=== PATIENT | male | born 1975 | race Caucasian/White ===

== ENCOUNTER 2022-08-07 10:46 | Inpatient (IN) | payer OTHER ==
[2022-08-07] MEDS ORDERED: ACETAMINOPHEN 500 MG TABLET (FP) PO ONE (11:32)
[2022-08-07 13:17] LABS: BASO % 0.1 % (0-2.0); EPI CELLS 2 /uL (0-25.1); HEMATOCRIT 47.6 % (35.4-49); HEMOGLOBIN 16.2 GM/dL (11.7-16.9); HYALINE CASTS 0 /uL (0-3.1); LYMPH % 6.7 % (8-40); MCH 30.8 pg (25.7-33.7); MEAN CELL VOLUME 90.8 fl (80-96); MEAN PLT VOLUME 8.6 fl (7.5-11.1); MONO % 6.2 % (3.8-10.2); PH,URINE 5.5 (5.0-8.0); PLATELET COUNT 216 10^3/uL (134-434); RBC 5.24 M/mm3 (4.00-5.60); RDW 13.4 % (11.9-15.9); URINE APPEARANCE TURBID; URINE BACTERIA 114 /uL (0-1359); URINE BILIRUBIN NEGATIVE (NEGATIVE); URINE COLOR YELLOW; URINE GLUCOSE (UA) NEGATIVE (NEGATIVE); URINE KETONE NEGATIVE (NEGATIVE); URINE LEUK ESTERASE 3+ (NEGATIVE); URINE NITRITE NEGATIVE (NEGATIVE); URINE PROTEIN 2+ (NEGATIVE); URINE RBC 1324 /uL (0-23.9); URINE UROBILINOGEN 0.2 mg/dL (0.2-1.0); URINE WBC 6007 /uL (0-25.8); WHITE BLOOD COUNT 13.6 K/mm3 (4.0-10.0)
[2022-08-07 13:24] LABS: INR 1.14 (0.83-1.09); PROTHROMBIN TIME (PATIENT) 13.1 SEC (9.7-13.0)
[2022-08-07 13:26] LABS: ACTIVATED PTT 30.2 SECONDS (25.2-36.5)
[2022-08-07 13:36] LABS: BLOOD UREA NITROGEN 11.5 mg/dL (7-18); CALCIUM 8.9 mg/dL (8.5-10.1)
[2022-08-07 13:37] LABS: ALBUMIN 3.9 g/dl (3.4-5.0)
[2022-08-07 13:40] LABS: CREATININE 0.9 mg/dL (0.55-1.3)
[2022-08-07 13:41] LABS: TOT PROT 8.1 g/dl (6.4-8.2)
[2022-08-07] MEDS ORDERED: SODIUM CHLORIDE 0.9% 1000 ML INFUS.BAG IV ONE (17:03)
[2022-08-07] MEDS ORDERED: KETOROLAC TROMETHAMINE 15 MG/ML VIAL IVPUSH ONE (17:03)
[2022-08-07] MEDS ORDERED: SULFAMETHOXAZOLE/TRIMETHOPRIM 800MG/160MG D.S. TABLET PO ONE (17:04)
[2022-08-07] MEDS ORDERED: KETOROLAC TROMETHAMINE 15 MG/ML VIAL ONE (17:32)
[2022-08-07] MEDS ORDERED: SULFAMETHOXAZOLE/TRIMETHOPRIM 800MG/160MG D.S. TABLET ONE (17:32)
[2022-08-07] MEDS ORDERED: ACETAMINOPHEN 1000 MG/100 ML BAG IVPB ONE (19:09)
[2022-08-07] MEDS ORDERED: SODIUM CHLORIDE 0.9% 500 ML INFUS.BAG IV ONE (19:10)
[2022-08-07] MEDS ORDERED: CEFTRIAXONE 1 GM in DEXTROSE 5%-WATER - 100 ML IVPB ONE (19:30)
[2022-08-07] MEDS ORDERED: ACETAMINOPHEN INJECTION 100 ML IVPB ONE (19:32)
[2022-08-07] MEDS ORDERED: ACETAMINOPHEN 325 MG TABLET (FP) PO PRN (21:03)
[2022-08-07] MEDS ORDERED: SODIUM CHLORIDE 1,000 ML IV STA (21:50)
[2022-08-07] MEDS ORDERED: CEFTRIAXONE 1 GM/50 ML BAG ONE (23:21)
[2022-08-08 00:26] LABS: HIV INTERPRETATION NEGATIVE (NEGATIVE)
[2022-08-08] MEDS ORDERED: ACETAMINOPHEN 325 MG TABLET (FP) ONE (02:42)
[2022-08-08 09:34] LABS: BASO % 0.1 % (0-2.0); EOS % 0.1 % (0-4.5); HEMATOCRIT 41.3 % (35.4-49); HEMOGLOBIN 14.1 GM/dL (11.7-16.9); LYMPH % 15.3 % (8-40); MCHC 34.1 g/dl (32.0-35.9); MEAN CELL VOLUME 91.1 fl (80-96); MEAN PLT VOLUME 8.6 fl (7.5-11.1); MONO % 7.1 % (3.8-10.2); NEUT % 77.4 % (42.8-82.8); PLATELET COUNT 184 10^3/uL (134-434); RBC 4.53 M/mm3 (4.00-5.60); RDW 13.3 % (11.9-15.9)
[2022-08-08 10:44] LABS: BLOOD UREA NITROGEN 10.4 mg/dL (7-18)
[2022-08-08] MEDS ORDERED: ENOXAPARIN NA (PORCINE) 40 MG/0.4 ML DISP.SYRIN SQ ONE (10:44)
[2022-08-08] MEDS ORDERED: NAPROXEN 500 MG TABLET ONE (10:44)
[2022-08-08] MEDS ORDERED: DOXYCYCLINE HYCLATE 100 MG VIAL ONE (10:44)
[2022-08-08] MEDS ORDERED: CEFTRIAXONE 1 GM/50 ML BAG ONE (10:44)
[2022-08-08 10:50] LABS: MAGNESIUM 1.9 mg/dL (1.8-2.4)
[2022-08-08 10:52] LABS: ALBUMIN 3.1 g/dl (3.4-5.0); CALCIUM 8.1 mg/dL (8.5-10.1)
[2022-08-08 10:53] LABS: CREATININE 0.9 mg/dL (0.55-1.3)
[2022-08-08 10:55] LABS: BILIRUBIN,TOTAL 1.3 mg/dL (0.2-1); TOT PROT 6.7 g/dl (6.4-8.2)
[2022-08-08] MEDS: ENOXAPARIN NA (PORCINE) 40 MG/0.4 ML DISP.SYRIN SQ SCH (10:56)
[2022-08-08] MEDS: CEFTRIAXONE 1 GM in DEXTROSE 5%-WATER - 50 ML IVPB SCH (10:56)
[2022-08-08] MEDS: NAPROXEN 500 MG TABLET PO SCH ×2 (10:57→22:49)
[2022-08-08] MEDS: DOXYCYCLINE INJECTION 100 MG in DEXTROSE 5%-WATER 100 ML IVPB SCH ×2 (11:45→22:40)
[2022-08-08 15:50] VITALS: BMI 27.0
[2022-08-09] MEDS: DOXYCYCLINE INJECTION 100 MG in DEXTROSE 5%-WATER 100 ML IVPB SCH (10:25)
[2022-08-09] MEDS: NAPROXEN 500 MG TABLET PO SCH (10:25)
[2022-08-09] MEDS: ENOXAPARIN NA (PORCINE) 40 MG/0.4 ML DISP.SYRIN SQ SCH (10:41)
[2022-08-09] MEDS: CEFTRIAXONE 1 GM in DEXTROSE 5%-WATER - 50 ML IVPB SCH (12:07)
[2022-08-09 15:04] VITALS: BP 118/70; PULSE 76; RESP 16; TEMP 98.1
== END 2022-08-09 13:30 | disposition home or self-care (01) | DRG 720 ==
LOC: JER 10:46 → JERBED 19:20 → J5S 08-08 15:20
PROVIDERS: ADMIT Internal Medicine
DX: A41.9 Sepsis, unspecified organism (principal); N43.3 Hydrocele, unspecified; N39.0 Urinary tract infection, site not specified; N50.811 Right testicular pain; N50.3 Cyst of epididymis; K40.90 Unilateral inguinal hernia, without obstruction or gangrene, not specified as recurrent; K57.90 Diverticulosis of intestine, part unspecified, without perforation or abscess without bleeding; N50.9 Disorder of male genital organs, unspecified; I86.1 Scrotal varices
CPT/HCPCS: 0241U-QW; 36415; 74177-TC; 76870-TC; 80053; 81003; 83605; 83735; 84100; 85025; 85610; 85730; 86850; 86900; 86901; 87040; 87086; 87186; 87389; 87491; 87591; 93005; 93010; 99285-25; C9803-CS; Q9967; U0003; U0005